=== PATIENT | female | born 1990 | race Caucasian/White ===

== ENCOUNTER 2024-07-31 19:47 | Emergency (ER) | payer SELFPAY ==
[~2024-07-31] VITALS: Ht 157.4 cm; Wt 115.2 kg
[2024-07-31 20:41] LABS: BASO % 0.3 % (0.0-1.0); EOS # 0.2 10*3/uL (0.0-0.4); EOS % 1.7 % (1.0-4.0); HEMATOCRIT 37.2 % (37.0-47.0); MEAN CELL VOLUME 89.4 fl (81.0-99.0); MEAN CORPUSCULAR HGB 29.3 pg (27.0-31.0); MEAN CORPUSCULAR HGB CONC 32.8 g/dl (33.0-37.0); MEAN PLATELET VOLUME 9.4 fl (9.6-12.3); MONO # 0.6 10*3/uL (0.1-1.0); MONO % 6.6 % (3.0-9.0); NEUT # 6.7 10*3/uL (2.3-7.9); NEUT % 72.5 % (47.0-73.0); PLATELET COUNT AUTOMATED 315 10*3/uL (130-400); RED BLOOD COUNT 4.16 10*6/uL (4.10-5.10); WHITE BLOOD COUNT 9.2 10*3/uL (4.8-10.8)
[2024-07-31 21:18] LABS: ALKALINE PHOSPHATASE 80 U/L (46-116); BUN 11 mg/dl (9-23); CHLORIDE 103 mmol/L (98-107); LIPASE 49 U/L (12-53); POTASSIUM 4.2 mmol/L (3.4-5.1); SGPT/ALT 42 U/L (5-49); TOTAL PROTEIN 7.3 gm/dL (6.0-8.0)
[2024-07-31] MEDS ORDERED: Ondansetron Hydrochloride 4 MG/2 ML VIAL IV ONE (21:35)
[2024-07-31] MEDS ORDERED: HYDROmorphone Hydrochloride 1 MG/ML SYR IV ONE (21:35)
== END 2024-07-31 23:43 | disposition home or self-care (01) ==
LOC: ED 19:47
PROVIDERS: Internal Medicine
DX: K80.20 Calculus of gallbladder without cholecystitis without obstruction (principal); K82.8 Other specified diseases of gallbladder; R00.0 Tachycardia, unspecified; Z88.0 Allergy status to penicillin; Z88.2 Allergy status to sulfonamides; Z88.6 Allergy status to analgesic agent; Z88.1 Allergy status to other antibiotic agents